=== PATIENT | male | born 1985 | race Caucasian/White ===

== ENCOUNTER 2019-05-16 10:19 | Emergency (ER) | payer OTHER ==
[~2019-05-16] VITALS: Ht 177.8 cm; Wt 104.3 kg
[2019-05-16 10:26] VITALS: BP 115/82
[2019-05-16] MEDS ORDERED: ZOLOFT25 MG PO (10:28)
[2019-05-16] MEDS ORDERED: ADDERALL 10 MG10 MG PO (10:28)
[2019-05-16] MEDS ORDERED: POLYMYXIN B/TMP10 ML OPHTHALMIC (10:44)
== END 2019-05-16 11:00 | disposition home or self-care (01) ==
LOC: M.ERS 10:19
DX: S05.01XA Injury of conjunctiva and corneal abrasion without foreign body, right eye, initial encounter (principal); J45.909 Unspecified asthma, uncomplicated; Z88.6 Allergy status to analgesic agent; W22.8XXA Striking against or struck by other objects, initial encounter; Y93.89 Activity, other specified; Y92.89 Other specified places as the place of occurrence of the external cause; Y99.8 Other external cause status